=== PATIENT | male | born 1960 | race Caucasian/White ===

== ENCOUNTER 2017-08-01 22:00 | Inpatient (IN) | payer SELFPAY ==
[~2017-08-01] VITALS: Ht 188 cm; Wt 112.2 kg
--- NOTE | ~2017-08-01 | HEMODYNAMI ---
PATIENT:TERI HOPE MEDICAL RECORD: [id number] : 58 LOCATION:[facility] D.2115 ADMISSION DATE: 08/01/17 Generatedon:08/02/201712:00 Patient name: TERI HOPE Patient #: [id number] SSN: [id number] : 1960 Date of study: 08/02/2017 Page: Of Hemodynamic Procedure Report Patient Data Patient Demographics Procedure consent was obtained First Name: TERI Gender: Male Last Name: JAYY : 1960 Patient #: [id number] Age: 57 year(s) Race: SSN: [id number] Additional ID: [id number] Contact details Address: [address] [place] [address] State: [place] City: [place] Zip code: [address] Admission Admission Data Admission Date: 08/01/2017 Admission Time: 22:00 Arrival Date: 08/01/2017 Arrival Time: 22:00 Admit Source: Other Insurance Payor: None Room #: D.2115 Height (in.): 73.62 BSA: 2.37 (m2) Height (cm.): 187 BMI: 32.03 (kg/m2) Weight (lbs.): 246.92 Weight (kg.): 112 Lab Results Lab Result Date: 08/02/2017 Lab Result Time: 0:00 Biochemistry Name Units Result Min Max BUN mg/dl 10 --(-*--)-- 7 18 Creatinine mg/dl 1 --(--*-)-- 0.6 1.3 CBC Name Units Result Min Max Hemoglobin g/dl 15.8 --(--*-)-- 13.5 17.5 Procedure Procedure Types Cath Procedure Diagnostic Procedure [facility] w/Coronaries Aortic Root Angiography Miscellaneous Procedures Moderate Sedation up to 15 minutes Moderate Sedation up to 45 minutes Procedure Description Procedure Date Procedure Date: 08/02/2017 Procedure Start Time: 10:47 Procedure End Time: 11:58 Procedure Staff Name Function Rao Reece MD Performing Physician Emerita Jaquez RT Scrub Selin Frank RN Nurse Ana Maria Dc RT Monitor Procedure Data Cath Procedure Fluoroscopy Diagnostic fluoroscopy Total fluoroscopy Time: time: 20.5 min 20.5 min Diagnostic fluoroscopy Total fluoroscopy dose: dose: 1673 mGy 1673 mGy Contrast Material Contrast Material Type Amount (ml) Isovue 300 178 Entry Location Entry Primary Successful Side Size Upsize Upsize Entry Closure Thomas ccessful Closure Location (Fr) 1 (Fr) 2 (Fr) Remarks Device Remarks Femoral Right 5 Fr 6 Fr Manual artery Short Compression Estimated blood loss: 5 ml Diagnostic catheters Device Type Used For End Catheter Placement Diagnostic Infinity 5Fr Right Coronary AL 1 catheter Angiography Diagnostic Infinity 5Fr Right Coronary AL 2 catheter Angiography Diagnostic Infinity 5Fr Right Coronary JL 6 catheter Angiography Diagnostic Infinity 5Fr Right Coronary LCB catheter Angiography Diagnostic Infinity 5Fr Right Coronary AR 2 MOD catheter Angiography Procedure Complications No complications Procedure Medications Medication Administration Route Dosage Oxygen NC 2 l/min Lidocaine 2% added to field 20 Heparin Flush Bag added to field 2 bags (1000units/500ml NS) 0.9% NaCl I.V. 100 ml/hr Versed I.V. 2 mg Fentanyl I.V. 25 mcg Radial Cocktail added to field 1 syringe (Verapomil 2mg/Nitro 400mcg/Heparin 1500units) Versed I.V. 1 mg Fentanyl I.V. 25 mcg 0.9% NaCl I.V. bolus 500 ml Heparin Bolus I.V. 3000 units Hemodynamics Rest BSA: 2.37 (m2) HGB: 15.8 (g/dl) O2 Consumption: Estimated: 269.41 (ml/min) O2 Co nsumption indexed: Estimated:113.68 (ml/min/m) Heart Rate: 59 (bpm) Pressure Samples Time Site Value (mmHg) Purpose Heart Use Rate(bpm) 11:19 LV 114/6,22 Snapshot 55 11:20 AO 108/69(88) Pullback 54 11:20 LV 99/16,21 Pullback 54 Gradients Valve Time Site 1 Site 2 Mean SEP/DFP Peak To Heart Use (mmHg) (sec/min) Peak Rate (mmHg) (bpm) Aortic 11:20 LV AO 0 3 0 54 99/16,21 108/69(88) Calculations Valve P-P Mean Valve Index Valve Source Name Gradient Area Flow (cm2) Aortic 0 0 0 0 Snapshots Pre Cath Intra NCS Post Cath Vital Signs Time Heart Resp SPO2 etCO2 [id number] NIBP (mmHg) Rhythm Pain Sedation Rate (ipm) (%) (mmHg) (mmHg) Status Level (bpm) 10:36:45 59 17 100 0 0 147/85(123) NSR 0 (11) 10(A) , No pain 10:41:03 57 16 100 0 0 135/80(94) NSR 0 (11) 10(A) , No pain 10:45:21 58 17 99 0 0 127/78(91) NSR 0 (11) 10(A) , No pain 10:49:41 54 18 99 0 0 126/73(89) NSR 0 (11) 10(A) , No pain 10:54:01 54 16 100 0 0 127/74(90) NSR 0 (11) 10(A) , No pain 10:58:19 51 12 98 0 0 124/71(87) NSR 0 () 10(A) , No pain 11:02:37 53 15 99 0 0 122/75(88) NSR 0 (11) 10(A) , No pain 11:06:56 52 15 98 0 0 122/72(88) NSR 0 (11) 10(A) , No pain 11:11:14 55 17 98 0 0 123/75(87) NSR 0 (11) 10(A) , No pain 11:15:32 56 16 99 0 0 124/76(91) NSR 0 (11) 10(A) , No pain 11:19:42 55 12 97 0 0 108/68(86) NSR 0 (11) 9(A) , No pain 11:24:00 50 14 95 0 0 112/63(75) NSR 0 (11) 9(A) , No pain 11:28:14 67 13 98 0 0 112/66(76) NSR 0 (11) 9(A) , No pain 11:32:32 56 12 98 0 0 108/63(76) NSR 0 (11) 9(A) , No pain 11:36:48 69 14 98 0 0 107/62(75) NSR 0 (11) 9(A) , No pain 11:41:04 55 13 98 0 0 115/65(83) NSR 0 (11) 9(A) , No pain 11:45:22 51 13 99 0 0 117/69(90) NSR 0 (11) 10(A) , No pain 11:49:40 51 15 100 0 0 121/75(89) NSR 0 (11) 10(A) , No pain 11:53:58 51 15 100 0 0 121/73(85) NSR 0 (11) 10(A) , No pain 11:58:16 47 14 100 0 0 128/79(92) NSR 0 (11) 10(A) , No pain Medications Time Medication Route Dose Verified Delivered Reason Note s Effectiveness by by 10:38:34 Oxygen NC 2 l/min Rao Buffie used for Sondra Frank RN procedure 10:38:41 Lidocaine 2% added 20ml Rao Rao for local to vial Sondra Reece MD anesthetic field HERNANDEZ 10:38:46 Heparin Flush added 2 bags Rao Rao used for Bag to Sondra Reece MD procedure (1000units/500ml field HERNANDEZ NS) 10:38:55 0.9% NaCl I.V. 100 Rao Buffie Per physician ml/hr Sondra Frank RN, MD 10:39:10 Radial Cocktail added 1 Rao Buffie not used (Verapomil to syringe Sondra Frank RN 2mg/Nitro field HERNANDEZ 400mcg/Heparin 1500units) 10:42:52 Versed I.V. 2 mg Rao Buffie for sedation Sondra Frank RN, MD 10:42:59 Fentanyl I.V. 25 mcg Rao Buffie for sedation Sondra Frank RN, MD 11:17:12 Versed I.V. 1 mg Rao Buffie for sedation Sondra Frank RN, MD 11:17:17 Fentanyl I.V. 25 mcg Rao Buffie for sedation Sondra Frank RN, MD 11:18:43 0.9% NaCl I.V. 500 ml Rao Buffie Per physician bolus Sondra Frank RN, MD 11:31:57 Heparin Bolus I.V. 3000 Rao Buffie for veri fied units Sondra Frank RN anticoagulation with dr MD reece Procedure Log Time Note 10:19:12 Informed consent obtained and on chart 10:19:31 Diagnostic Cath Status : Elective 10:19:56 Emerita Jaquez RT(R) sent for patient. Start room use. 10:19:57 Time tracking: Regular hours 10:20:01 Plan of Care:Hemodynamics will remain stable., Cardiac rhythm will remain stable., Comfort level will be maintained., Respiratory function will remain adequate., Patient/ family verbilizes understanding of procedure., Procedure tolerated without complication., Recovers from procedure without complications.. 10:20:09 Admit Source: Other 10:20:20 Arrival Date: 08/01/2017 10:00:00 PM 10:20:29 Insurance Payor : None 10:20:42 Patient Weight : 246.92 lbs 10:20:48 Patient Height : 73.62 inches 10:26:27 Patient received from Med II to CCL 1 Alert and oriented. Tansferred to table in Supine position. 10:26:28 Warm blankets applied, and christiano hugger turned on for patient comfort. 10:26:29 Correct patient and procedure confirmed by team. 10:26:29 ECG and BP/O2 sat monitors applied to patient. 10:35:30 Vital chart was started 10:35:31 Baseline sample Acquired. 10:35:34 Rhythm: sinus rhythm 10:35:36 Full Disclosure recording started 10:35:40 H&P Date Dictated: 08/02/2017 New H&P dictated by physician.. 10:35:41 Pre-procedure instructions explained to patient. 10:35:41 Pre-op teaching completed and patient verbalized understanding. 10:35:42 Family in waiting room. 10:35:44 Patient NPO since Midnight. 10:35:48 Is the patient allergic to Iodine/contrast media? No. 10:35:49 Was the patient premedicated? No 10:35:50 Is patient on blood thinner?Yes 10:35:52 ACC The patient was administered the following blood thiners within the last 24 hours: ACCPlavix 10:35:55 Patient diabetic? No. 10:35:57 Previous problem with sedation/anesthesia? No ? 10:36:00 Snore? Yes 10:36:01 Sleep apnea? No 10:36:02 Deviated septum? No 10:36:02 Opens mouth fully? Yes 10:36:03 Sticks out tongue? Yes 10:36:05 Airway obstruction? No ? 10:36:07 Dentures? No ? 10:36:10 Pre procedure: right dorsailis pedis pulse 2+ Normal; easily identifiable; not easily obliterated 10:36:13 Pre procedure: left dorsailis pedis pulse 2+ Normal; easily identifiable; not easily obliterated 10:36:16 Patient pain scale 0/10 ?. 10:36:19 Modified Leander's test Radial < 7 seconds 10:37:43 IV patent on arrival in right antecubital with 0.9% NaCl at [facility]. 10:38:04 Lab Result : BUN 10 mg/dl 10:38:04 Lab Result : Creatinine 1 mg/dl 10:38:04 Lab Result : Hemoglobin 15.8 g/dl 10:38:34 Oxygen 2 l/min NC was administered by Selin Frank RN; used for procedure; 10:38:39 Lab results completed and on chart. 10:38:41 Lidocaine 2% 20ml vial added to field was administered by Rao Reece MD; for local anesthetic; 10:38:43 Right Radial & Right Groin area was prepped with chlora-prep and draped in sterile fashion 10:38:44 Alarms reviewed by R. N. 10:38:44 Sharps counted by scrub and verified by R.N. 10:38:46 Heparin Flush Bag (1000units/500ml NS) 2 bags added to field was administered by Rao Reece MD; used for procedure; 10:38:47 Physician arrived 10:38:47 --------ALL STOP TIME OUT------ 10:38:48 Final Timeout: patient, procedure, and site verified with staff and physician. All members of the team are in agreement. 10:38:55 0.9% NaCl 100 ml/hr I.V. was administered by Selin Frank RN; Per physician; 10:38:55 Right Radial & Right Groin site verified by team. 10:38:58 Physical assessment completed. ASA score P 2 - A patient with mild systemic disease as per Rao Reece MD. 10:39:02 Sedation plan: IV Moderate Sedation Versed, Fentanyl 10:39:09 Use device set Radial Dx 10:39:09 Acist Syringe opened to sterile field. 10:39:10 Radial Cocktail (Verapomil 2mg/Nitro 400mcg/Heparin 1500units) 1 syringe added to field was administered by Buffie Frank RN; ; not used 10:39:10 Medline Cath Pack opened to sterile field. 10:39:10 Bag Decanter opened to sterile field. 10:39:11 Terumo 6Fr Slender Glidesheath opened to sterile field. 10:39:11 St Raoul 260cm J .035 wire opened to sterile field. 10:39:11 Acist Hand Control opened to sterile field. 10:39:12 Acist Manifold opened to sterile field. 10:39:12 Tegaderm 4 x 4 opened to sterile field. 10:39:12 MBrace Wrist Support opened to sterile field. 10:42:52 Versed 2 mg I.V. was administered by Selin Frank RN; for sedation; 10:42:59 Fentanyl 25 mcg I.V. was administered by Selin Frank RN; for sedation; 10:46:29 Procedure started. 10:46:46 Zero performed for pressure channel P1 10:46:52 Zero performed for pressure channel P1 10:47:28 Local anesthetic to right radial artery with Lidocaine 2% by Rao Reece MD.INITIAL ACCESS ONLY 10:52:22 Unable to get radial access; preparing for femoral procedure 10:52:50 Terumo 5Fr [place] Sheath opened to sterile field. 10:52:51 Cook 4Fr Micropuncture Set ([id number]) opened to sterile field. 10:53:35 Local anesthetic to right femoral artery with Lidocaine 2% by Rao Reece MD.ADDITIONAL ACCESS 10:53:46 A 5 Fr sheath was inserted into the Right Femoral artery 10:54:24 Diagnostic Infinity 5Fr Multipack catheter opened to sterile field. 10:54:33 5 Fr jl 4 guide catheter was inserted over the wire 10:58:47 LCA angiography performed. 10:58:50 Injector settings: Ml/sec: 3, Volume: 6, 11:00:26 Catheter removed. 11:00:40 5 Fr 3drc guide catheter was inserted over the wire 11:05:10 Catheter removed. unable to cannulate vessel. 11:05:26 A Diagnostic Infinity 5Fr AL 1 catheter was advanced over the wire and used for Right Coronary Angiography. 11:09:12 Catheter removed. unable to cannulate vessel. 11:09:49 Terumo 6Fr [place] Sheath opened to sterile field. 11:09:57 Sheath upsized to a 6 Fr Short. 11:12:02 Medtronic Launcher 6Fr AL 1.0 guide catheter opened to sterile field. 11:12:09 6 Fr al 1 guide catheter was inserted over the wire 11:13:56 Guide Catheter removed. unable to cannulate vessel. 11:14:20 A Diagnostic Infinity 5Fr AL 2 catheter was advanced over the wire and used for Right Coronary Angiography. 11:17:12 Versed 1 mg I.V. was administered by Selin Frank RN; for sedation; 11:17:17 Fentanyl 25 mcg I.V. was administered by Selin Frank RN; for sedation; 11:18:43 0.9% NaCl 500 ml I.V. bolus was administered by Selin Frank RN; Per physician; 11:19:15 5 Fr pig guide catheter was inserted over the wire 11:19:48 LV hemodynamics recorded. 11:19:57 LV gram done using PAULSON 11:20:02 Injector settings: Ml/sec: 5, Volume: ?, 11:20:08 Injector settings: Ml/sec: 12, Volume: 8, 11:20:51 EF : 60 % 11:21:43 Aortic Root visualized 11:23:35 Catheter removed. 11:24:18 A Diagnostic Infinity 5Fr JL 6 catheter was advanced over the wire and used for Right Coronary Angiography. 11:26:56 Catheter removed. unable to cannulate vessel. 11:28:06 A Diagnostic Infinity 5Fr LCB catheter was advanced over the wire and used for Right Coronary Angiography. 11:30:20 Catheter removed. unable to cannulate vessel. 11:30:44 A Diagnostic Infinity 5Fr AR 2 MOD catheter was advanced over the wire and used for Right Coronary Angiography. 11:31:57 Heparin Bolus 3000 units I.V. was administered by Selin Frank RN; for anticoagulation; verified with dr reece 11:35:09 Medtronic Launcher 6Fr AL 3.0 guide catheter opened to sterile field. 11:35:24 6 Fr al 3 guide catheter was inserted over the wire 11:37:14 Guide Catheter removed. unable to cannulate vessel. 11:39:47 Velasco [employer] Zavalla 2 J-tip 300cm 0.014 guide wir opened to sterile field. 11:40:25 Medtronic Launcher 6Fr AL 1.0 guide catheter opened to sterile field. 11:40:58 6 Fr al 1 guide catheter was inserted over the wire 11:48:05 Guide Catheter removed. unable to cannulate vessel. 11:48:40 Medtronic Launcher 6Fr ALR1-2 guide catheter opened to sterile field. 11:49:27 6 Fr alr 1-2 guide catheter was inserted over the wire 11:52:32 Guide Catheter removed. unable to cannulate vessel. 11:54:41 Sheath removed intact; hemostasis achieved with Manual Compression to the Right Femoral artery. 11:54:42 Procedure ended.(Physican Out) 11:54:55 Fluoroscopy time 20.50 minutes. 11:55:14 Flurop Dose total: 1673 11:55:14 Fluoroscopy dose: 1673 mGy 11:56:36 Contrast amount:Isovue 300 178ml. 11:56:38 Sharps counted by scrub and verified by R.N. 11:56:53 Insertion/operative site no bleeding no hematoma. 11:56:56 Post-op/insertion site Right Femoral artery dressed using a 4 x 4 and Tegaderm. 11:56:59 Post right femoral artery:stable 11:57:00 Post Procedure Pulses reassessed and unchanged 11:57:14 Post procedure rhythm: unchanged. 11:57:17 Estimated blood loss: 5 ml 11:57:19 Post procedure instruction explained to patient.Patient verbalizes understanding. 11:57:19 Patient needs reinforcement of post procedure teaching. 11:57:52 Procedure type changed to Cath procedure, Diagnostic procedure, LHC, LHC w/Coronaries, Aortic Root Angiography, Miscellaneous Procedures, Moderate Sedation up to 15 minutes, Moderate Sedation up to 45 minutes 11:57:53 Procedure and supply charges have been captured, reviewed, submitted and are correct. 11:58:05 Procedure Complication : No complications 11:58:07 Vital chart was stopped 11:58:09 See physician's report for complete and final results. 11:58:36 Report given to [facility]. 11:58:39 Patient transfered to [facility] with Stretcher. 11:58:42 Procedure ended. 11:58:42 Full Disclosure recording stopped 11:58:49 End room use (Document Last) Device Usage Item Name Manufacture Quantity Catalog Hospital Part Current Minim al Lot# / Number Charge Number Stock Stock Serial# Code Acist Syringe Acist 1 09290 912490 780215 927701 20 Medical Systems Inc Medline Cath Cardinal 1 [id number] 218251 74731 938403 5 Pack Health Bag Decanter Microtek 1 2002S 4771072 66170 945304 5 Medical Inc. Terumo 6Fr Terumo 1 [id number] 889955 088096 336139 [address] Raoul [address] St Raoul 1 179723 319599 031454 218080 30 J .035 wire Acist Hand Acist 1 68908 753686 047603 232113 5 Control Medical Systems Inc Acist Acist 1 89071 397593 940631 298320 5 Manifold Medical Systems Inc Tegaderm 4 x 3M 1 1626W 532600 816833 657644 5 4 MBrace Wrist Advanced 1 140-0250-00 717576 38376 394859 5 Support Vascular Dynamics Terumo 5Fr Terumo 1 [id number] 413631 157537 854697 40 [place] Sheath Cook 4Fr Rackspace 1 [id number] 161972 584664 089181 5 Micropuncture Set ([id number]) Diagnostic Cardinal 1 NL9966 110964 86503 393204 30 Infinity 5Fr Health Multipack catheter Diagnostic Cardinal 1 [id number] 202437 251746 023098 15 Infinity 5Fr Health AL 1 catheter Terumo 6Fr Terumo 1 GRK349 456250 443407 812852 40 [place] Sheath Medtronic Medtronic 2 [id number] 646735 03095 020746 1 Launcher 6Fr AL 1.0 guide catheter Diagnostic Cardinal 1 [id number] 991358 479686 037900 15 Infinity 5Fr Health AL 2 catheter Diagnostic Cardinal 1 147015B 390385 958067 644918 5 Infinity 5Fr Health JL 6 catheter Diagnostic Cardinal 1 [id number] 682485 980104 620124 5 Infinity 5Fr Health LCB catheter Diagnostic Cardinal 1 [id number] 188381 701860 653182 20 Infinity 5Fr Health AR 2 MOD catheter Medtronic Medtronic 1 [id number] 110165 73400 896205 1 Launcher 6Fr AL 3.0 guide catheter Velasco [employer] Velasco 1 [id number] 215631 437859 613866 5 Zavalla 2 Vascular J-tip 300cm 0.014 guide wir Medtronic Medtronic 1 [id number] 863056 63591 710205 1 Launcher 6Fr ALR1-2 guide catheter Signature Audit Liguori Stage Time Signature Unsigned Intra-Procedure 08/02/2017 Ana Maria Dc 12:00:26 PM RT(R) Signatures Monitor : Ana Maria Dc RT Signature : Date : Time : [place] [facility] [place] [address]
--- NOTE | 2017-08-01 21:45 | NUR ---
PT ARRIVES VIA EMS TO ROOM 215, ACCOMPANIED BY SPOUSE. ASSISTED INTO BED. TELEMETRY PLACED. NSR ON MONITOR. HR 70'S. VSS, AFEBRILE. PAIN FREE UPON ARRIVAL. ADMISSION ASSESSMENT AND HISTORY COMPLETED. PT STATES NOT TAKING ANY HOME MEDICATIONS. UNIT ROUTINES AND PROTOCOLS DISCUSSED WITH PT AND HIS SPOUSE, THEY BOTH VERBALIZED UNDERSTANDING. CALL LIGHT PLACED WITHIN REACH. WILL CONT TO MONITOR.
[2017-08-01 23:12] VITALS: BP 135/95; Ht 188 cm; Wt 112.2 kg
--- NOTE | 2017-08-02 00:07 | NUR ---
ASSESSMENT UNCHANGED. VSS, AFEBRILE. RESP EVEN UNLABORED. NO NEEDS VOICED. WILL CONT TO MONITOR.
[2017-08-02 03:59] VITALS: BP 110/58
--- NOTE | 2017-08-02 07:30 | NUR ---
RECEIVED PT IN BED EYES CLOSED RESP UNLABORED NAD NOTED
[2017-08-02 07:49] VITALS: BP 115/76
[2017-08-02 08:29] LABS: BASOPHILS 0.4 % (0-2); HEMATOCRIT 45.6 % (42.0-54.0); HEMOGLOBIN 15.8 g/dL (13.5-17.5); IMMATURE GRANULOCYTES 0.3 % (0-5); LYMPHOCYTES 47.4 % (15-50); MCH 32.2 pg (26.0-34.0); MCHC 34.6 g/dL (31.0-37.0); MCV 92.9 fL (80.0-100.0); MEAN PLATELET VOLUME 10.7 fL (7.4-10.4); MONOCYTES 12.3 % (2-11); NEUTROPHILS 36.6 % (40-80); PLATELET COUNT 159 10x3/uL (130-400); RBC 4.91 10x6/uL (4.20-6.10)
[2017-08-02 08:36] LABS: CALC OSMOLALITY 280 mosm/kg (275-300); CALCIUM 8.5 mg/dL (8.5-10.1); CARBON DIOXIDE 26.2 mmol/L (21.0-32.0); CHLORIDE - SERUM 107 mmol/L (98-107); GLUCOSE 109 mg/dL (74-106); POTASSIUM - SERUM 4.1 mmol/L (3.5-5.1); SODIUM 141 mmol/L (136-145); UREA NITROGEN 10 mg/dL (7-18); eGFR NON AFRICAN AMERICAN 81 mL/min (90-120)
--- NOTE | 2017-08-02 17:54 | NUR ---
RESTING QUITLY DENIES ANY NEEDS OR DISCOMFORT
[2017-08-02 19:00] VITALS: BP 107/77
[2017-08-03] VITALS: BP 115/70
[2017-08-03 04:00] VITALS: BP 116/67
--- NOTE | 2017-08-03 07:30 | NUR ---
RECEIVED PT IN BED EYES CLOSED RESP UNLABORED NAD NOTED ASLEEP AT BEDSIDE
[2017-08-03 08:26] VITALS: BP 112/53
[2017-08-03 11:58] VITALS: BP 96/62
--- NOTE | 2017-08-03 14:30 | NUR ---
visiting with family nad noted
[2017-08-03 15:56] VITALS: BP 126/66
[2017-08-03 20:00] VITALS: BP 108/57
[2017-08-04] VITALS: BP 98/44
[2017-08-04 04:00] VITALS: BP 95/49
[2017-08-04 08:00] VITALS: BP 114/62
--- NOTE | 2017-08-04 11:03 | NUR ---
OUT OF ROOM. LOOKING FOR PATIENT. PATIENT FOUND OUTSIDE. ENCOURAGE TO RETURN TO ROOM TO SPEAK WITH DOCTOR. 'S NURSE PAGED PER 'S REQUEST. PATIENT RETURNS TO ROOM ACCOMPANIED BY FAMILY AND FRIENDS. DENIES ANY NEEDS AT THIS TIME. DOCTOR IN ROOM. CONTINUE PLAN OF CARE. BED LOCKED AND LOW. CALL LIGHT IN REACH. TWO SIDERAIL UP. SINUS RHTHYM 65bpm ON TELEMETRY. REFUSE SCDs.
[2017-08-04 12:00] VITALS: BP 102/45
[2017-08-04 16:00] VITALS: BP 108/58
[2017-08-04] MEDS ORDERED: LIPITOR40 MG PO (17:22)
[2017-08-04] MEDS ORDERED: LOPRESSOR25 MG PO (17:22)
[2017-08-04] MEDS ORDERED: ASPIRIN325 MG PO (17:23)
--- NOTE | 2017-08-04 17:29 | NUR ---
Patient Name: TERI HOPE Admission Status: Elective Accout number: [id number] Admission Date: 08-03-2017 : 1960 Admission Diagnosis: Attending: GELY JIMENEZ Current LOS: 1 Anticipated DC Date: 08-04-2017 Planned Disposition: Acute Care Hospital Primary Insurance: UNINSURED DISCOUNT PLAN PLANNED EXTERNAL PROVIDER: [facility] Discharge Planning Comments: * Is the patient Alert and Oriented? Yes 0 * How many steps to enter\exit or inside your home? 3 0 * PCP NONE 0 * Pharmacy [facility] IN [place] 0 * Preadmission Environment Home with Family 0 * ADLs Independent 0 * Equipment None 0 * Other Equipment NO MEDICAL EQUIPMENT PROVIDER PREFERENCE 0 * List name and contact numbers for known caregivers / representatives who currently or will assist patient after discharge: KIM HOPE, SPOUSE, 0 * Community resources currently utilized None 0 * Please name any agencies selected above. NONE 0 * Additional services required to return to the preadmission environment? No 0 * Can the patient safely return to the preadmission environment? Yes 0 * Has this patient been hospitalized within the prior 30 days at any hospital? No 0 CM RECEIVED ORDER FOR HOPITAL TRANSFER. CM MET WITH PT IN ROOM TO DISCUSS TRANSFER TO THE [facility]. PT REPORTS AGREEMENT WITH TRANSFER TO THE [facility] IN [place]. CM PROVIDED CONTACT NUMBER AND ADDRESS TO PT FOR HIS SPOUSE. CM CALLED GLASS TECHNICIAN/INSTALLER DIVINE, RECEIVED ADMINISTRATIVE APPROVAL FOR TRANSFER FROM [facility] DUE TO EQUIPMENT NECESSARY FOR THE PROCEDURE NOT BEING AVAILABLE AT [place]. CM CALLED [facility], , SPOKE TO BRADLEY WHO REPORTED THAT DR. NELSON HAS ACCEPTED PT AND ASKED FOR FAX OF CURRENT LABS, FACE SHEET AND EKG TO [phone]. CM FAXED REQUESTED INFORMATION. [facility] READY FOR NURSE REPORT AND TRANSFER OF PT VIA AMBULANCE. NURSE REPORT TO BE CALLED TO [facility], ; CALL BRADLEY AT [phone] WHEN AMBULANCE ARRIVES TO [facility] FEEDER PT FOR TRANSPORT, BRADLEY WILL PROVIDE ROOM NUMBER AT THAT TIME. Aluminum Welder: John Ascencio
--- NOTE | 2017-08-04 18:31 | NUR ---
ALERT AND ORIENTED X4. FAMILY AT BEDSIDE. REPORT CALLED TO ANGELO HUERTA AT [facility]. TRANSFER PAPERS SIGNED BY PATIENT AND SALES TRAINEE. [facility] CALLED FOR TRANSPORT. DENIES ANY NEEDS. CONTINUE PLAN OF CARE.
--- NOTE | 2017-08-04 20:05 | NUR ---
TRANSFERED TO [facility]IA [facility]. LOS WITH STAFFING FROM THE [facility] NOTIFIED.
== END 2017-08-04 20:06 | disposition short-term general hospital (02) | DRG 281 ==
LOC: OBSVTIME → D.M2 22:00 → UNDOADMOB 22:00 → D.M2 08-03 16:12
PROVIDERS: ADMIT Internal Medicine Cardiovascular Disease
PROC: B2151ZZ Fluoroscopy of Left Heart using Low Osmolar Contrast (ICD-10-PCS; 2017-08-02)
PROC: 4A023N7 Measurement of Cardiac Sampling and Pressure, Left Heart, Percutaneous Approach (ICD-10-PCS; 2017-08-02)
PROC: B2111ZZ Fluoroscopy of Multiple Coronary Arteries using Low Osmolar Contrast (ICD-10-PCS; principal; 2017-08-02 10:19)
DX: I21.4 Non-ST elevation (NSTEMI) myocardial infarction (principal); Q24.5 Malformation of coronary vessels; I25.10 Atherosclerotic heart disease of native coronary artery without angina pectoris; I10 Essential (primary) hypertension